=== PATIENT | male | born 1950 | race Two or more races ===

== ENCOUNTER 2021-03-15 11:03 | Outpatient (CLI) | payer OTHER | END 2021-03-15 12:14 | disposition home or self-care (01) | LOC: TOM 11:03 | PROVIDERS: ATTEND Urology | DX: N20.0 Calculus of kidney (principal) ==

== ENCOUNTER → 2021-03-22 14:19 | Outpatient (CLI) | payer OTHER ==
[~2021-03-22 14:19] MED LIST: COREG; COZAAR50 MG PO; INDAPAMIDE2.5 MG PO; SYNJARDY; XARELTO20 MG PO
== END | disposition home or self-care (01) ==
LOC: LAB 14:19
PROVIDERS: ATTEND Urology
DX: I11.0 Hypertensive heart disease with heart failure (principal); N20.0 Calculus of kidney

== ENCOUNTER 2021-03-23 12:38 | Outpatient (CLI) | payer OTHER ==
[2021-03-23] MEDS ORDERED: SYNJARDY (14:48)
[2021-03-23] MEDS ORDERED: COZAAR50 MG PO (14:48)
[2021-03-23] MEDS ORDERED: INDAPAMIDE2.5 MG PO (14:48)
[2021-03-23] MEDS ORDERED: COREG (14:49)
[2021-03-23] MEDS ORDERED: XARELTO20 MG PO (14:49)
== END 2021-03-23 15:02 | disposition home or self-care (01) ==
LOC: LAB 12:38
PROVIDERS: ATTEND Internal Medicine
DX: D68.8 Other specified coagulation defects (principal); Z01.818 Encounter for other preprocedural examination